=== PATIENT | male | born 1990 | race Caucasian/White ===

== ENCOUNTER 2017-08-17 15:46 | Emergency (ER) | payer BC ==
[2017-08-17] MEDS ORDERED: HYDROMORPHONE HCL 2 MG/ML VIAL IVP ONE (15:59)
--- NOTE | 2017-08-17 16:08 | Emergency Department Record ---
History of Present Illness - General Source: Patient, Family Mode of Arrival: Ambulatory Limitations: No limitations - History of Present Illness Initial comments: 26 yo male presents with left flank pain that started this morning. The pain is sharp and radiates from the flank. No hematuria. No fever. He does have nausea and vomiting. No diarrhea. He had a renal stone in 2016 with similar symptoms. That stone passed spontaneously. Onset/Timin -: Hour(s) Location: Left flank Severity: Moderate Severity scale (1-10): 10 Quality: Aching Consistency: Constant Improves with: None Worsens with: None Reports: Nausea/vomiting <EMILY VILLARREAL - Last Filed: 08/17/17 19:27> <Ellen Cho - Last Filed: 08/17/17 19:59> - General Chief complaint: Flank Pain Stated complaint: LOWER LT SIDE BACK PAIN Time Seen by Provider: 08/17/17 15:57 - Related Data Previous Rx's Medication Instructions Recorded Hydrocodone/Acetaminophen [[place] 1 each PO Q6H #20 tablet 08/17/17 5-325 Tablet] Ondansetron [Zofran Odt] 4 mg PO Q8H #20 tab.rapdis 08/17/17 Allergies Allergy/AdvReac Type Severity Reaction Status Date / Time No Known Drug Allergies Allergy Verified 08/17/17 16:00 Travel Screening - Travel/Exposure Within Last 30 Days Have you traveled within the last 30 days?: No - Travel/Exposure Within Last Year Have you traveled outside the [place] in the last year?: No - Additonal Travel Details Have you been exposed to anyone with a communicable illness?: No - Travel Symptoms Symptom Screening: None <EMILY VILLARREAL - Last Filed: 08/17/17 19:27> Review of Systems Constitutional: Denies: Chills, Fever, Weakness Eyes: Denies: Eye discharge, Eye pain, Photophobia, Vision change ENT: Denies: Congestion, Throat pain Respiratory: Denies: Cough, Dyspnea, Wheezes Cardiovascular: Denies: Chest pain, Palpitations, Syncope Endocrine: Denies: Fatigue Gastrointestinal: Reports: As per HPI, Abdominal pain, Nausea, Vomiting. Denies : Diarrhea Genitourinary: Denies: Dysuria, Frequency, Hematuria, Retention, Urgency Musculoskeletal: Reports: As per HPI, Back pain. Denies: Arthralgia Skin: Denies: Bruising, Change in color, Rash Neurological: Denies: Headache, Numbness, Weakness Psychiatric: Denies: Anxiety Hematological/Lymphatic: Denies: Blood Clots, Easy bleeding, Easy bruising, Swollen glands <EMILY VILLARREAL - Last Filed: 08/17/17 19:27> Past Medical History - SOCIAL HISTORY Smoking Status: Never smoker Alcohol Use: None Drug Use: None - RESPIRATORY Hx Respiratory Disorders: Yes Hx Asthma: Yes (sports induced) - CARDIOVASCULAR Hx Cardio Disorders: Yes Comment:: open heart sx age 14 - NEURO Hx Neuro Disorders: No - GI Hx GI Disorders: No - Hx Kidney Stones: Yes - ENDOCRINE Hx Endocrine Disorders: No - MUSCULOSKELETAL Hx Musculoskeletal Disorders: No - PSYCH Hx Psych Problems: Yes Hx Behavior Problems: Yes (ADHD) - HEMATOLOGY/ONCOLOGY Hx Hematology/Oncology Disorders: No <EMILY VILLARREAL - Last Filed: 08/17/17 19:27> Family Medical History Any Significant Family History?: Yes Hx Kidney Disease: Father, Mother *Kidney Comment: kidney stones <EMILY VILLARREAL - Last Filed: 08/17/17 19:27> Physical Exam - General General Appearance: Alert, Oriented x3, Cooperative, Anxious (due to pain) Limitations: No limitations - Head Head exam: Normal inspection - Eye Eye exam: Normal appearance. negative: Conjunctival injection, Periorbital swelling - ENT ENT exam: Normal exam Ear exam: Normal external inspection Nasal Exam: Normal inspection Mouth exam: Normal external inspection - Neck Neck exam: Normal inspection - Respiratory Respiratory exam: Normal lung sounds bilaterally. negative: Respiratory distress - Cardiovascular Cardiovascular Exam: Regular rate, Normal rhythm, Normal heart sounds - GI/Abdominal GI/Abdominal exam: Soft. negative: Distended, Tenderness - Rectal Rectal exam: Deferred - exam: Deferred - Extremities Extremities exam: Normal inspection - Back Back exam: Reports: Normal inspection, Full ROM - Neurological Neurological exam: Alert, Normal gait, Oriented X3 - Psychiatric Psychiatric exam: Anxious (due to pain) - Skin Skin exam: Dry, Intact, Normal color, Warm <EMILY VILLARREAL - Last Filed: 08/17/17 19:27> Course Vital Signs 08/17/17 15:56 Temperature 97.5 F L Pulse Rate 66 Respiratory 18 Rate Blood Pressure 100/58 Pulse Ox 98 - Reevaluation(s) Reevaluation #1: EMR reviewed. Renal stone 08/201608/17/17 16:05 The CBC and CMP was reviewed No acute changes 08/17/17 16:48 3mm renal stone in the left mid ureter with hydro. 08/17/17 17:47 Awaiting UA the patient is doing better The case was signed out to Dr Cho for recheck and review of the urine 08/17/17 19:27 <EMILY VILLARREAL - Last Filed: 08/17/17 19:27> Vital Signs 08/17/17 08/17/17 08/17/17 15:56 18:00 19:05 Temperature 97.5 F L 97.5 F L 97.4 F L Pulse Rate 66 Pulse Rate [ 64 60 Pulse Ox Probe] Respiratory 18 18 18 Rate Blood Pressure 100/58 Blood Pressure 121/68 129/73 [Right Arm] Pulse Ox 98 100 100 - Reevaluation(s) Reevaluation #2: 08/17/17 19:58 pt feels better and is ready to go home <Ellen Cho - Last Filed: 08/17/17 19:59> Medical Decision Making - Lab Data Result diagrams: 08/17/17 16:08 08/17/17 16:08 <EMILY VILLARREAL - Last Filed: 08/17/17 19:27> - Lab Data Result diagrams: 08/17/17 16:08 08/17/17 16:08 Lab Results 08/17/17 08/17/17 08/17/17 Range/Units 16:08 16:08 19:41 WBC 11.8 (4.2-12.2) K/uL RBC 4.86 (4.40-5.70) M/uL Hgb 14.9 (14.0-18.0) gm/dl Hct 41.9 L (42.0-52.0) % MCV 86.2 (81-97) fl MCH 30.7 (27-33) pg MCHC 35.6 (32-36) g/dl RDW 11.7 (11.5-14.5) % Plt Count 239 (130-400) K/uL MPV 9.5 (7.4-10.4) fl Gran % 79.1 (47-80) % Lymphocytes % 15.6 L (16-45) % Monocytes % 4.6 (0-9) % Eosinophils % 0.4 (0-6) % Basophils % 0.3 (0-6) % Sodium 142 (136-145) mmol/L Potassium 3.9 (3.4-4.5) mmol/L Chloride 101 (98-107) mmol/L Carbon Dioxide 27.0 (22-29) mmol/L Anion Gap 14.0 (7-16) BUN 13 (6-20) mg/dL Creatinine 0.8 (0.7-1.2) mg/dL Estimated GFR > 60 mL/min Random Glucose 149 H (74-109) mg/dL Calcium 9.7 (8.6-10.0) mg/dL Urine Color Yellow Urine Appearance Clear Urine pH 6.0 (5.0-8.0) Ur Specific Vincent 1.025 (1.002-1.030) Urine Protein Trace H (NEGATIVE) Urine Glucose (UA) Negative (NEGATIVE) Urine Ketones 15 mg/dl H (NEGATIVE) Urine Blood Large H (NEGATIVE) Urine Nitrite Negative (NEGATIVE) Urine Bilirubin Negative (NEGATIVE) Urine Urobilinogen 0.2 (0.20 - 1.00) E.U./dL Ur Leukocyte Esterase Negative (NEGATIVE) Urine RBC 36 - 50 (NONE SEEN) Urine WBC 0 - 2 (0-2/hpf) Ur Epithelial Cells 0 - 2 (FEW) Urine Bacteria None seen <Ellen Cho - Last Filed: 08/17/17 19:59> Disposition Time of Disposition: 19:30 <EMILY VILLARREAL - Last Filed: 08/17/17 19:27> Disposition: Discharge <Ellen Cho - Last Filed: 08/17/17 19:59> Clinical Impression: Renal stone Disposition: Home, Self-Care Condition: (1) Good Instructions: Kidney Stones (ED) Additional Instructions: You are being referred back to Dr Askew for you renal stone Return if pain, fever, vomiting Prescriptions: Hydrocodone/Acetaminophen [[place] 5-325 Tablet] 1 each PO Q6H #20 tablet Ondansetron [Zofran Odt] 4 mg PO Q8H #20 tab.rapdis Referrals: HANNAH ASKEW M.D. [MEDICAL DOCTOR] - [facility] [Provider Group] Forms: Patient Portal Access Quality - Quality Measures Quality Measures: N/A - Blood Pressure Screening Does Patient Have Any of the Following: No Blood Pressure Classification: Normal BP Reading Systolic Measurement: 100 Diastolic Measurement: 58 Screening for High Blood Pressure: < Normal BP, F/U Not Required > [G8783] Pre-Hypertensive Follow-up Interventions: Referral to alternative/primary care provider. <EMILY VILLARREAL - Last Filed: 08/17/17 19:27> - Blood Pressure Screening Does Patient Have Any of the Following: No Blood Pressure Classification: Normal BP Reading Systolic Measurement: 100 Diastolic Measurement: 58 Screening for High Blood Pressure: < Normal BP, F/U Not Required > [G8783] <Ellen Cho - Last Filed: 08/17/17 19:59>
[2017-08-17] MEDS: ONDANSETRON HCL IV 4 MG/2 ML VIAL IV ONE (16:11)
[2017-08-17] MEDS: 0.9 % SODIUM CHLORIDE 1000ML 1,000 ML IV ONE ×2 (16:11→18:51)
[2017-08-17] MEDS: KETOROLAC 30 MG/ML VIAL IVP ONE (16:12)
[2017-08-17] MEDS: HYDROMORPHONE HCL 1MG/ML **SYRINGE IVP ONE ×4 (16:13→20:23)
[2017-08-17 16:15] LABS: BASO % 0.3 % (0-6); EOS % 0.4 % (0-6); GRAN % 79.1 % (47-80); HEMATOCRIT 41.9 % (42.0-52.0); HEMOGLOBIN 14.9 gm/dl (14.0-18.0); LYMPH % 15.6 % (16-45); MEAN CELL VOLUME 86.2 fl (81-97); MEAN CORPUSCULAR HEMOGLOBIN 30.7 pg (27-33); MEAN CORPUSCULAR HGB CONC 35.6 g/dl (32-36); MEAN PLATELET VOLUME 9.5 fl (7.4-10.4); MONO % 4.6 % (0-9); PLATELET COUNT 239 K/uL (130-400); RED BLOOD COUNT 4.86 M/uL (4.40-5.70); RED CELL DISTRIBUTION WIDTH 11.7 % (11.5-14.5); WHITE BLOOD COUNT W/O DIFF 11.8 K/uL (4.2-12.2)
[2017-08-17 16:43] LABS: BLOOD UREA NITROGEN 13 mg/dL (6-20); CREATININE 0.8 mg/dL (0.7-1.2); EST GLOMERULAR FILTRATION RATE > 60 mL/min; GLUCOSE,RANDOM 149 mg/dL (74-109)
[2017-08-17] MEDS: ACETAMINOPHEN 1,000 MG/100 ML BTL IVPB ONE (17:24)
[2017-08-17] MEDS: TAMSULOSIN HCL 0.4 MG CAP.ER.24H PO ONE (17:24)
[2017-08-17] MEDS: ONDANSETRON HCL IV 4 MG/2 ML VIAL IVP ONE (18:00)
[2017-08-17] MEDS: PROMETHAZINE HCL 25 MG/ML VIAL IVP ONE (18:51)
[2017-08-17 19:40] LABS: URINE APPEARANCE CLEAR; URINE BILIRUBIN NEGATIVE (NEGATIVE); URINE BLOOD LARGE (NEGATIVE); URINE COLOR YELLOW; URINE GLUCOSE (UA) NEGATIVE (NEGATIVE); URINE KETONE 15 mg/dL (NEGATIVE); URINE LEUKOCYTE ESTERASE NEGATIVE (NEGATIVE); URINE NITRITE NEGATIVE (NEGATIVE); URINE PROTEIN TRACE (NEGATIVE); URINE UROBILINOGEN 0.2 E.U./dL (0.20 - 1.00)
[2017-08-17 19:49] LABS: URINE BACTERIA NONE SEEN; URINE EPITHELIAL CELLS 0 - 2 (FEW); URINE RBC 36 - 50 (NONE SEEN); URINE WBC 0 - 2 (0-2/hpf)
--- NOTE | 2017-08-19 08:22 | CT SCAN REPORT ---
EXAM: CT OF THE ABDOMEN AND PELVIS WITHOUT CONTRAST HISTORY: LEFT BACK PAIN. TECHNIQUE: Sequential axial images were obtained from the diaphragms through the ischiorectal fossa without intravenous or oral contrast administration. FINDINGS: The visualized lung bases appear normal. There is a 3 mm obstructing calculus in the left mid ureter. This produces mild left hydronephrosis. No additional calculi appreciated. The liver, gallbladder, pancreas, and spleen appear normal. The adrenal glands appear normal. The small bowel appears normal. The colon appears normal. The appendix is not definitively identified. There are no CT findings suggestive of acute appendicitis. IMPRESSION: 3 MM OBSTRUCTING CALCULUS IN THE LEFT MID URETER. THIS PRODUCES MILD LEFT HYDRONEPHROSIS. JOB NUMBER: [id number] MTDD
== END 2017-08-17 20:27 | disposition home or self-care (01) ==
LOC: ER 15:46
DX: N13.2 Hydronephrosis with renal and ureteral calculous obstruction (principal); R11.2 Nausea with vomiting, unspecified; Z87.442 Personal history of urinary calculi
CPT/HCPCS: 99284 ×2; 96376; 96374; 96375; 85025; 80048; 81001; 74176; J1885; J2405; J1170; J2550; J7030